=== PATIENT | male | born 1985 | race Two or more races ===

== ENCOUNTER → 2025-03-03 | Outpatient (CLI) | payer BC, MEDICAID, SELFPAY ==
[2025-03-03 10:45] LABS: INR 1.0 (0.9-1.3); Prothrombin Time 10.6 Seconds (9.0-12.2)
[2025-03-03 11:02] LABS: Alanine Aminotransferase 17 U/L (10-49); Albumin, Serum 4.4 gm/dL (3.5-5.0); Alkaline Phosphatase 84 U/L (46-116); Aspartate Amino Transferase 21 U/L (0-34); Bilirubin,Direct 0.1 mg/dL (0.0-0.3); Bilirubin,Total 0.5 mg/dL (0.3-1.2); Total Protein 7.3 gm/dL (5.7-8.2)
[2025-03-03 11:03] LABS: Ferritin 186 ng/mL (10.5-307.3); Iron 87 mcg/dL (65-175); Percent Iron Saturation 27 % (20-55); Total Iron Binding Capacity 316 mcg/dL (250-425); Unsaturated Iron Binding 229 (225-295)
[2025-03-03 11:47] LABS: AFP Non-Pregnant 2.10 ng/mL (<8.10); Hepatitis A Antibody IgM Non Reactive (Non React); Hepatitis B Core Antibody IgM Non Reactive (Non React); Hepatitis B Surface Antigen Non Reactive (Non React); Hepatitis C Antibody Non Reactive (Non React)
[2025-03-07 06:37] LABS: ACTH, Plasma* 11 pg/mL (6-50)
[2025-03-09 06:34] LABS: ANA Screen, IFA NEGATIVE (NEGATIVE)
[2025-03-09 06:35] LABS: Alpha-1-Antitrypsin* 127 mg/dL (83-199); Ceruloplasmin* 21 mg/dL (14-30); Copper* 98 mcg/dL (70-175); Mitochondrial Ab NEGATIVE (NEGATIVE)
== END | disposition home or self-care (01) ==
PROVIDERS: PCP Family Medicine; Referring Provider Specialist; Visit Provider Family Medicine
DX: R94.5 Abnormal results of liver function studies (principal); R14.0 Abdominal distension (gaseous); R11.0 Nausea
CPT/HCPCS: 36415; 80074; 80076; 82024; 82103; 82105; 82390; 82525; 82728; 83540; 83550; 85610; 86038; 86255

== ENCOUNTER 2025-04-17 08:35 | Day surgery (SDC) | payer BC, MEDICAID, SELFPAY ==
[2025-04-14 15:54] VITALS: BMI 39.2
[2025-04-17] VITALS (10 sets, daily range): BP systolic 122–144; BP diastolic 72–94; PULSE 69–86; RESP 11–19; TEMP 36.6–36.8; O2SAT 95–99; BMI 38.4
[2025-04-17] MEDS: SODIUM CHLORIDE 0.9% 500 ML 500 ML 20 ML IV (11:32)
[2025-04-17] MEDS: fentaNYL CIT INJ 50 mCg/ML AMP 2ML (ASD USE ONLY) IVP (11:32)
[2025-04-17] MEDS: MIDAZOLAM INJ 1 MG/ML VIAL 2 ML (ASD USE ONLY) 2 MG IVP (11:32)
[2025-04-17] MEDS: LIDOCAINE JELLY 2% (Urojet) 10 ML TUBE TOP (11:52)
== END 2025-04-17 12:05 | disposition home or self-care (01) ==
PROVIDERS: PCP Family Medicine; Referring Provider Specialist; Visit Provider Specialist
PROC: 0DBE8ZX Excision of Large Intestine, Via Natural or Artificial Opening Endoscopic, Diagnostic (ICD-10-PCS; CPT 45380; principal; 2025-04-17 08:30)
DX: Z12.11 Encounter for screening for malignant neoplasm of colon (principal); D12.3 Benign neoplasm of transverse colon; Z86.0100 Personal history of colon polyps, unspecified; K64.2 Third degree hemorrhoids; K57.30 Diverticulosis of large intestine without perforation or abscess without bleeding; R94.5 Abnormal results of liver function studies; I10 Essential (primary) hypertension; Z79.899 Other long term (current) drug therapy
CPT/HCPCS: 45385; A4649; J1200; J2250; J3010; J7999